=== PATIENT | female | born 1960 | race Caucasian/White ===

== ENCOUNTER 2018-07-16 22:15 | Emergency (ER) | payer SELFPAY ==
--- NOTE | 2018-07-16 22:26 | ED Physician Documentation ---
PD HPI Fall - Stated complaint Stated Complaint: FALL - Chief complaint Chief Complaint: Trauma Ext - History obtained from History obtained from: Patient - History of Present Illness Mechanism of injury: Tripped Fall distance: Standing position (She and her are visiting with [place] and staying at a cast place. There walking down some steps to a hot tub outside and steps took a turn and she did not see that and so stepped off of the landing and fell forward. She states her foot was hurt and her right buttock. She struck her forehead either on the ground or with the glass she was holding. She denies any loss of consciousness confusion nor vomiting. She has a laceration on her forehead that bled well to begin with. She is here for possible sutures.) Where injury occurred: Other (guest house) Injury(ies) location: Face (right forehead), Right Lower Extremity (foot and gluteal area) Associated symptoms: No: LOC, AMS, Neck pain Contributing factors: No: Anticoagulated Similar symptoms before: Has not had sx before Review of Systems Constitutional: denies: Fever Nose: denies: Rhinorrhea / runny nose, Congestion Throat: denies: Sore throat Respiratory: denies: Cough GI: denies: Vomiting Musculoskeletal: denies: Neck pain, Back pain Neurologic: denies: Focal weakness, Numbness, Altered mental status, Headache PD PAST MEDICAL HISTORY - Past Medical History Cardiovascular: None Respiratory: None Neuro: None Endocrine/Autoimmune: None - Present Medications Home Medications: Ambulatory Orders Medication Instructions Recorded Confirmed Hydroxychloroquine [Plaquenil] 200 mg PO DAILY 07/16/18 07/16/18 Methotrexate Sodium [Trexall] 15 mg PO OAW 07/16/18 07/16/18 - Allergies Allergies/Adverse Reactions: Allergies Allergy/AdvReac Type Severity Reaction Status Date / Time aspirin Allergy Respiratory Verified 07/16/18 22:26 NSAIDS (Non-Steroidal Allergy Respiratory Verified 07/16/18 22:26 Anti-Inflamma erythromycin base AdvReac Nausea Verified 07/16/18 22:26 PD ED PE NORMAL - Vitals Vital signs reviewed: Yes - General General: Alert and oriented X 3, No acute distress, Well developed/nourished - HEENT HEENT: PERRL, EOMI, Pharynx benign, Dentition benign, Other (right forehead with 2 cm laceration without FB. ) - Neck Neck: Supple, no meningeal sign, No bony TTP, No adenopathy - Cardiac Cardiac: RRR, No murmur - Respiratory Respiratory: Clear bilaterally, Other (no chestwall tenderness) - Abdomen Abdomen: Soft, Non tender - Back Back: No CVA TTP, No spinal TTP - Derm Derm: Normal color, Warm and dry - Extremities Extremities: Other (right gluteal area with soft tissue tenderness. Hip with good ROM and no limiting pain. Right foot with tenderness dorsolateral, without obvious deformity.) - Neuro Neuro: Alert and oriented X 3, No motor deficit, No sensory deficit, Normal speech Results - Vitals Vitals: Vital Signs - 24 hr 07/16/18 07/16/18 22:20 23:36 Temperature 36.8 C 36.6 C Heart Rate 72 78 Respiratory 15 16 Rate Blood Pressure 143/79 H 132/66 H O2 Saturation 98 99 Oxygen O2 Source Room air - Rads (name of study) right foot Radiology: Prelim report reviewed, EMP read contemporaneously (no fractures), See rad report Procedures - Laceration (location) right forehead Length in cm: 2 Wound type: Linear, Into subcut fat, Clean. No: Contaminated Neurovascular status: Sensory intact Anesthesia: LET Wound Preparation: Irrigated copiously NS Skin layer closure: Nylon, Running, Size #-0 - enter number (6), Sutures - enter # (7) Other: Patient tolerated well, No complications, Neurovascular intact, Dressing applied, Tetanus UTD Complexity: Simple Departure - Departure Disposition: 01 Home, Self Care Clinical Impression: Fall down steps Qualifiers: Encounter type: initial encounter Qualified Code(s): W10.8XXA - Fall (on) (from) other stairs and steps, initial encounter Foot contusion Qualifiers: Encounter type: initial encounter Laterality: right Qualified Code(s): S90.31XA - Contusion of right foot, initial encounter Contusion, buttock Qualifiers: Encounter type: initial encounter Qualified Code(s): S30.0XXA - Contusion of lower back and pelvis, initial encounter Facial laceration Qualifiers: Encounter type: initial encounter Qualified Code(s): S01.81XA - Laceration without foreign body of other part of head, initial encounter Condition: Stable Record reviewed to determine appropriate education?: Yes Instructions: ED Sprain Foot, ED Laceration Facial Sutr Tape Comments: Tylenol if needed for pains. Elevate and ice to the foot periodically tonight and tomorrow to reduce swelling. Activity as tolerated based on comfort. It is okay to wash and shower. Clean off the wound twice a day with soap and water, or peroxide and water. Apply some antibiotic ointment to it to keep it moist. Also to watch for signs of infection such as purulence, redness or increasing pain. Return to your primary care or the ER at the specified time for suture removal. Suture removal 7 or 8 days Discharge Date/Time: 07/16/18 23:45
[2018-07-16] MEDS ORDERED: ACETAMINOPHEN 325 MG TABLET PO STA (22:44)
[2018-07-16] MEDS ORDERED: LIDOCAINE-EPINEPH-TETRACAINE 3 ML SYRINGE TOP STA (22:44)
--- NOTE | 2018-07-16 23:11 | XRAY Report ---
Reason: fall down steps with foot pain Procedure Date: 07/16/2018 Accession Number: [id number] / [id number] Procedure: XR - Foot 3 View RT CPT Code: FULL RESULT: EXAM: RIGHT FOOT RADIOGRAPHY EXAM DATE: 07/16/2018 10:59 PM. CLINICAL HISTORY: Fall down steps with foot pain. COMPARISON: None. TECHNIQUE: 3 views. FINDINGS: Bones: Normal. No fractures or bone lesions. Joints: Normal. No subluxations. Soft Tissues: Normal. No soft tissue swelling. IMPRESSION: Normal foot radiography. [facility]
[2018-07-16] MEDS ORDERED: BACITRACIN OINT TOP STA (23:31)
[2018-07-16 23:38] VITALS: BP 132/66
== END 2018-07-16 23:45 | disposition home or self-care (01) ==
LOC: ED 22:15
DX: S01.81XA Laceration without foreign body of other part of head, initial encounter (principal); S90.31XA Contusion of right foot, initial encounter; S30.0XXA Contusion of lower back and pelvis, initial encounter; W10.9XXA Fall (on) (from) unspecified stairs and steps, initial encounter; Y92.59 Other trade areas as the place of occurrence of the external cause
CPT/HCPCS: 12011; 73630; 99283; 99284; A9270